=== PATIENT | male | born 2000 | race African-American/Black ===

== ENCOUNTER 2019-05-08 00:33 | Emergency (ER) | payer OTHER ==
--- NOTE | 2019-05-08 00:39 | ER Document Report ---
ED General - General Stated Complaint: SUICIDE IDEATION Notes: 3-year-old male brought in by mobile crisis mostly against his will after making suicidal threats. He has had intermittent issues with his girlfriend 5 symptoms of infection per divorce with past medical says he is been hospitalized once stable. Per mobile crisis he had a fight with his girlfriend that he pretended to drink some l motor oil. Mobile crisis is concerned for her safety and is also concerned that he is never had a mental health evaluation. Past Medical History - Social History Smoking Status: Unknown if Ever Smoked Family History: None Review of Systems - Review of Systems Notes: REVIEW OF SYSTEMS GEN: Denies fever, chills, weight loss ENT: Denies sore throat, nasal discharge, ear pain EYES: Denies blurry vision, eye pain, discharge CV: Denies chest pain, palpitations, edema RESP: Denies cough, shortness of breath, wheezing GI: Denies abdominal pain, nausea, vomiting, diarrhea MSK: Denies joint pain/swelling, edema, SKIN: Denies rash, skin lesions LYMPH: Denies swollen glands/lymph nodes NEURO: Denies headache, focal weakness or numbness, dizziness PSYCH: Denies depression, suicidal or homicidal ideation PHYSICAL EXAMINATION General: No acute distress, well-nourished Head: Atraumatic, normocephalic ENT: Mouth normal, oropharynx moist, no exudates or tonsillar enlargement Eyes: Conjunctiva normal, pupils equal, lids normal Neck: No JVD, supple, no guarding CVS: Normal rate, regular rhythm, no murmurs Resp: No resp distress, equal and normal breath sounds bilaterally GI: Nondistended, soft, no tenderness to palpation, no rebound or guarding Ext: No deformities, no edema, normal range of motion in upper and lower ext Back: No CVA or midline TTP Skin: No rash, warm Lymphatic: No lymphadeopathy noted Neuro: Awake, alert. Face symmetric. GCS 15. Course - Re-evaluation Re-evalutation: 05/08/19 01:07 Likely chronic undiagnosed mental health issues with anger and possible suicidal threats Will place on IVC for 24 hours order mental health evaluation. Medically cleared. Discharge - Discharge Clinical Impression: Threatening behavior Condition: Good Disposition: PSYCH HOSP/UNIT
[2019-05-08 01:39] LABS: APPEARANCE,URINE SLIGHTLY-CLOUDY; BILIRUBIN,URINE NEGATIVE (NEGATIVE); COLOR,URINE AMBER; GLUCOSE, URINE NEGATIVE (NEGATIVE); KETONES,URINE TRACE mg/dL (NEGATIVE); LEUKOCYTE ESTERASE,URINE NEGATIVE (NEGATIVE); NITRITE,URINE NEGATIVE (NEGATIVE); PROTEIN,URINE 100 mg/dL (NEGATIVE); URINE SPECIFIC GRAVITY 1.036
[2019-05-08 02:04] LABS: ABSOLUTE BASOPHILS # (AUTO) 0.1 10^3/uL (0.0-0.2); ABSOLUTE LYMPHOCYTES (AUTO) 2.4 10^3/uL (0.5-4.7); ABSOLUTE MONOCYTES (AUTO) 0.4 10^3/uL (0.1-1.4); ABSOLUTE NEUT (AUTO) 3.9 10^3/uL (1.7-8.2); BASOPHILS % (AUTO) 0.8 % (0-2); EOSINOPHILS % (AUTO) 0.2 % (0-6); HEMATOCRIT 41.7 % (37.9-51.0); HEMOGLOBIN 14.3 g/dL (13.5-17.0); LYMPHOCYTES % (AUTO) 35.3 % (13-45); MEAN CORPUSCULAR HEMOGLOBIN 27.9 pg (27.0-33.4); MEAN CORPUSCULAR HGB CONC 34.4 g/dL (32.0-36.0); MEAN CORPUSCULAR VOLUME 81 fl (80-97); MONOCYTES % (AUTO) 6.2 % (3-13); PLATELET COUNT 306 10^3/uL (150-450); RED BLOOD COUNT 5.13 10^6/uL (4.35-5.55); RED CELL DISTRIBUTION WIDTH 14.2 % (11.5-14.0); SEGMENTED NEUTROPHILS % (AUTO) 57.5 % (42-78); TOTAL CELLS COUNTED % (AUTO) 100 %; WHITE BLOOD COUNT 6.8 10^3/uL (4.0-10.5)
[2019-05-08 02:32] LABS: ALKALINE PHOSPHATASE 85 U/L (38-126); ANION GAP 11 (5-19); ASPARTATE AMINO TRANSFERASE 31 U/L (17-59); BILIRUBIN,DIRECT 0.2 mg/dL (0.0-0.4); BILIRUBIN,TOTAL 0.7 mg/dL (0.2-1.3); BLOOD UREA NITROGEN 14 mg/dL (7-20); CALCIUM 10.1 mg/dL (8.4-10.2); CARBON DIOXIDE 29 mmol/L (22-30); CHLORIDE 103 mmol/L (98-107); GLUCOSE 85 mg/dL (75-110); POTASSIUM 3.9 mmol/L (3.6-5.0); TOTAL PROTEIN 8.4 g/dL (6.3-8.2)
[2019-05-08 02:42] LABS: ACETAMINOPHEN < 10 ug/mL (10-30); ALCOHOL < 10 mg/dL (NONE DETECTED); SALICYLATE < 1.0 mg/dL (2.0-20.0)
[2019-05-08 03:28] LABS: URINE AMPHETAMINES SCREEN NEGATIVE; URINE BARBITURATES SCREEN NEGATIVE; URINE BENZODIAZEPINES SCREEN NEGATIVE; URINE COCAINE SCREEN NEGATIVE; URINE MARIJUANA (THC) SCREEN NEGATIVE; URINE METHADONE SCREEN NEGATIVE; URINE PHENCYCLIDINE SCREEN NEGATIVE
--- NOTE | 2019-05-08 09:11 | PSYCHOLOGICAL NOTE ---
Psych Note - Psych Note Date seen by psych provider: 05/08/19 Time seen by psych provider: 07:05 Psych Note: Patient is a 19-year-old male who presents to ED via [facility] for suicidal ideation. Patient states he only came to ED because he was told by mobile die out worker that he would be discharged in the morning. Clinician stated he was misinformed, that mobile crisis has no say in disposition one he is in the hospital. Patient expressed frustration for being "forced to come here." Patient states he never threatened suicide. Clinician questioned patient as to his intent with pretending to drink the motor oil. Patient states he was trying to get his girlfriend's attention/keep her from leaving. Patient reports he did not ingest any motor oil, and he put some on his shirt to make his girlfriend think he did. Patient states they had a "great" day together and had agreed to start again with a "clean slate," but the girlfriend became upset when she saw a message from another female on his phone. Patient continued that it was a "dumb, impulsive action." Patient states this happened before approximately a year ago when he and same girlfriend broke up. Patient states he was very upset and walked across the street and the girlfriend "lied on me" telling others I threatened suicide. Patient reports he was sent to an inpatient psychiatric facility "for not very long" in [place]. Patient reports a limited social support system, other than his father who lives in [place]. Patient works part time at the mall. Patient lives with his boss. Patient verbalized understanding this process is due to his poor choices. Patient expressed he has no desire, plan, and/or intent to commit suicide. Patient states he has a plan to enlist in the when the Johnson virus pandemic subsides. Patient denies history of substance use. Patient's UDS is negative for substances. Patient denies mental health concerns in childhood. Patient was an athlete in high school. Patient graduated from high school without concerns. Patient denies mental health diagnosis. Patient is not linked with mental health provider. Patient was provided psychoeducation regarding coping skills. Patient states he "knows" about coping skills. Clinician asked what happened that he was not able to utilize those coping skills during this event. Patient had no response. Discussed aggression and not allowing another person to leave can be a criminal offense. Patient was provided with emotional distress tolerance skills. Provided patient with CBT techniques to reframe thoughts. Discussed the need to "brush up" on these skills with an outpatient mental health provider. Patient was receptive. Patient is alert and oriented to person, place, time and circumstance. Mood is eurythmic with congruent affect as evidenced by appropriate engagement with clinician. Patient denies suicidal and homicidal ideations. Delusions are absent and behavior is congruent with an intact reality based presentation (i.e., organized and linear through processes). There is no observed behavior that suggests patient is responding to internal stimuli. Patient is able to engage in organized, rational thought processes. Patient is able to express needs and wants in a logical manner. Patient is able to identify his lack of utilization of coping skills and poor choices resulted in this ED visit. Patient denies current auditory and visual hallucinations. Eye contact is appropriate. Conversational speech is within normal rate, tone, and prosody. Intellectual ability appears to be within average range. Attention and concentration are good. Insight, judgment and impulse control are currently fair. Impression/Plan: Patient is recommended for rescind of 24 hour petition and is cleared from acute psychiatric services. Patient was brought to ED after an an argument with girlfriend when she found a text message in his phone from another female. Patient states he used his behaviors in an attempt to manipulate his girlfriend from leaving, because he did not want her to leave him. Patient verbalized insight that it was his poor decisions that resulted in this ED. Patient was provided with psychoeduction regarding coping skills, distress tolerance skills, and thought reframing. Patient denies actual suicide attempts. Other than patient's report of his behavior being used to manipulate girlfriend after an argument, there is nothing to suggest patient is a danger to himself or others. Both incidences of patient's reported SI is related to break ups with girlfriend, with whom patient describes a toxic relationship. Patient is linked with [facility] mobile crisis, plan is for patient to contact [facility] mobile crisis at discharge for continuity of care. Patient was also provided with an outpatient mental health resource list with the contact information for [facility] and [facility] highlighted. Dr. Rasheed was consulted on the care and management of this patient; attending physician is in agreement with recommendations and disposition.
--- NOTE | 2019-05-08 11:04 | ER Document Report ---
Doctor's Note Notes: 05/08/19 10:58 PHYSICAL EXAMINATION: GENERAL: Appears well, healthy, well-nourished, no acute distress. LUNGS: Equal breath sounds bilaterally and clear to auscultation. No wheezes rales or rhonchi. CARDIOVASCULAR: S1-S2, regular rate, regular rhythm. Radial pulses 2+, normal. ABDOMEN: Normoactive bowel sounds. Soft, nontender, no guarding, no rebound tenderness, and no masses palpated. PSYCH: Normal mood, normal affect. Denied any suicidal or homicidal ideation at this time. He will follow-up with mental health outpatient. Mental health has evaluated the patient. Follow-up precautions were given. Verbal discharge instructions were given to the patient. They verbalized understanding. They are stable for discharge.
[2019-05-08 12:00] VITALS: BP 110/63
--- NOTE | 2019-05-08 15:53 | EKG REPORT ---
SEVERITY:- BORDERLINE ECG - SINUS RHYTHM BORDERLINE T ABNORMALITIES, INFERIOR LEADS BORDERLINE ST ELEVATION, ANTERIOR LEADS : Confirmed by: Susan Ibarra MD 08-May-2019 15:53:01
== END 2019-05-08 12:00 | disposition home or self-care (01) ==
LOC: ER 00:33
DX: F91.9 Conduct disorder, unspecified (principal)
CPT/HCPCS: 36415; 80053; 80307; 81001; 85025; 93005; 93010; 99285